=== PATIENT | male | born 1945 | race Caucasian/White ===

== ENCOUNTER → 2017-08-29 | Outpatient (CLI) | payer MEDICARE, BC | LOC: M.RAD 11:23 | DX: S42.92XA Fracture of left shoulder girdle, part unspecified, initial encounter for closed fracture (principal); M19.012 Primary osteoarthritis, left shoulder; G89.11 Acute pain due to trauma; W19.XXXA Unspecified fall, initial encounter; Y93.89 Activity, other specified; Y92.89 Other specified places as the place of occurrence of the external cause; Y99.8 Other external cause status ==

== ENCOUNTER → 2018-12-18 | Outpatient (CLI) | payer MEDICARE, BC | LOC: M.RAD 15:58 | DX: M19.022 Primary osteoarthritis, left elbow (principal) ==

== ENCOUNTER → 2019-06-09 | Outpatient (CLI) | payer MEDICARE, BC | LOC: M.RAD 11:32 | DX: R04.2 Hemoptysis (principal) ==

== ENCOUNTER → 2019-06-24 | Outpatient (CLI) | payer MEDICARE, BC ==
[2019-06-24 10:52] LABS: CREATININE 1.1 mg/dL (0.6-1.3)
== END ==
LOC: M.LAB 10:29 → M.CT 11:30
PROVIDERS: Internal Medicine
DX: R91.8 Other nonspecific abnormal finding of lung field (principal); Z01.89 Encounter for other specified special examinations; R04.2 Hemoptysis; R59.0 Localized enlarged lymph nodes; J98.4 Other disorders of lung